=== PATIENT | male | born 1965 | race Caucasian/White ===

== ENCOUNTER 2018-06-29 07:31 | Outpatient (CLI) | payer OTHER | END 2018-06-29 11:59 | disposition home or self-care (01) | LOC: NUCLEAR 07:31 | DX: I20.9 Angina pectoris, unspecified (principal); I25.10 Atherosclerotic heart disease of native coronary artery without angina pectoris; I25.2 Old myocardial infarction; E78.2 Mixed hyperlipidemia | CPT/HCPCS: 78452; 93017; A9500 ==

== ENCOUNTER 2022-03-15 14:00 | Inpatient (IN) | payer OTHER ==
[~2022-03-15] VITALS: Ht 177.8 cm; Wt 80.7 kg
[2022-03-15] MEDS ORDERED: CIPROFLOXACIN500 MG PO (14:10)
[2022-03-15] MEDS ORDERED: ROSUVASTATIN CA10 MG PO (14:11)
[2022-03-15] MEDS ORDERED: NORVASC2.5 MG PO (14:11)
--- NOTE | 2022-03-15 14:17 | NUR ---
SE RECIBE PTE ALERTA ORIENTADA X3.PTE REFIERE TENER DOLOR ABDOMINAL NIELS DESDE EL PASADO MIERCOLES.PTE REFIERE SER DIAGNOSTICADO CON DIVERTICULITIS HACEN VARIOS MESES,PTE REFIERE HABERSE REALIZADO EL LALITO DE HOY CT Y MUESTRAS DE LABORATORIO.SE ARMAND S/V Y SE UBICA.
--- NOTE | 2022-03-15 15:04 | NUR ---
SE RECIBE PTE ALERTA X3 ORIENTADO, SE LE REALIZAN S/V Y SE MANTIENE EN OBASERVACION
--- NOTE | 2022-03-15 15:33 | NUR ---
PACIENTE EVALUADO POR DRA. RAM QUIEN ORDENA TRATAMIENTO. SE EDUCA ACERCA DEL MISMO Y PTE REFIERE ENTENDER. SE REALIZAN MUESTRAS DE NNEKA MEDIANTE MEDIDAS ASEPTICAS. SE CANALIZA CON ANGIO #[id number] EN RA MEDIANTE MEDIDAS ASEPTICAS. PACIENTE EN ESPERA DE RESULTADOS DE LABORATORIOS
--- NOTE | 2022-03-16 04:03 | NUR ---
PTE ALERTA Y ORIENTADO X 3 ESFERAS EN KELL CON BARANDAS ELEVADAS,EN COMPANIA DE FAMILIAR,AREA DE VENOPUNCION PATENTE Y STAN DE EDEMA CON FLUIDOS DE MANTENIMIENTO BAJANDO SIN DIFICULTAD.NO REFIERE DOLOR,PENDIENTE A EVALUACION DE DRA LONG.
--- NOTE | 2022-03-16 07:38 | NUR ---
SE RECIBE PTE EN EL AREA DE OBSERVACION EN KELL CON BARANDAS ELEVADA Y TIMBRE ACCESIBLE, NO PRESENTA DOLOR AL MOMENTO SE OBSERVA VENOPUNCION PATENTE Y STAN DE EDEMA PTE EN ESEPRA DE LA DR THORNTON.
== END 2022-03-18 17:38 | disposition home or self-care (01) | DRG 392 ==
LOC: ER 14:00 → SURH 03-16 11:20 → MEDJ 03-16 12:59 → SURH 03-16 14:45
PROVIDERS: ADMIT Internal Medicine; ATTEND Internal Medicine
DX: K57.32 Diverticulitis of large intestine without perforation or abscess without bleeding (principal); I10 Essential (primary) hypertension; E78.5 Hyperlipidemia, unspecified; Z20.822 Contact with and (suspected) exposure to COVID-19